=== PATIENT | male | born 1940 | race Caucasian/White ===

== ENCOUNTER → 2021-03-14 | Outpatient (CLI) | payer MEDICARE ==
[~2021-03-14] MED LIST: B-121000 MC2 PO; BENADRYL25 MG PO; COLACE100 MG PO; COUMADIN 5 MG TA5 M1 PO; DEPAKOTE 250MG250 M1 PO; LIPITOR10 MG PO; MELATONIN3 MG PO; NEURONTIN600 MG PO; PROPRANOLOL 1010 MG PO; SOTALOL 120 MG120 M1 PO; ZOLOFT50 MG PO
== END ==
LOC: M.RAD 10:52
PROVIDERS: ATTEND Internal Medicine Hematology & Oncology
DX: C90.00 Multiple myeloma not having achieved remission (principal)